=== PATIENT | female | born 1945 | race American Indian/Alaskan Native ===

== ENCOUNTER 2018-05-14 09:33 | Outpatient (CLI) | payer MEDICARE, OTHER | END 2018-05-14 09:34 | disposition home or self-care (01) | LOC: C.VASC 09:33 ==

== ENCOUNTER 2018-05-28 11:34 | Outpatient (CLI) | payer MEDICARE, OTHER | END 2018-05-28 11:35 | disposition home or self-care (01) | LOC: C.PAT 11:34 → C.VASC 11:35 | DX: N18.6 End stage renal disease (principal) ==

== ENCOUNTER 2018-05-30 07:24 | Day surgery (SDC) | payer MEDICARE, OTHER ==
[2018-05-28 12:01] VITALS: BMI 33.7
[2018-05-30 08:46] VITALS: BP 162/94; PULSE 84; RESP 20; TEMP 97.3; O2SAT 100
[2018-05-30 08:50] LABS: CALCIUM 9.4 mg/dl (8.6-10.4)
[2018-05-30] MEDS ORDERED: HEPARIN-NS 5,000 UNITS/500 ML 0 UNIT/0 ML BAG IV ONE (10:29)
== END 2018-05-30 11:15 | disposition home or self-care (01) ==
LOC: C.SDS 07:24
PROVIDERS: ATTEND Surgery Vascular Surgery
DX: N18.6 End stage renal disease (principal); Z53.8 Procedure and treatment not carried out for other reasons

== ENCOUNTER 2018-06-06 06:05 | Day surgery (SDC) | payer MEDICARE, OTHER ==
[2018-05-28 12:01] VITALS: BMI 33.7
[2018-06-06] MEDS ORDERED: HEPARIN-NS 5,000 UNITS/500 ML 5,000 UNIT/500 ML BAG IV ONE (09:10)
[2018-06-06] MEDS ORDERED: Clindamycin 600mg/50ml NS 600 MG/50 ML BAG IVPB ONE (09:10)
[2018-06-06] MEDS ORDERED: Propofol 10 mg/ml Inj (20 ML) ONE (09:19)
[2018-06-06] MEDS ORDERED: Midazolam 2 MG/2 ML VIAL ONE (09:19)
[2018-06-06] MEDS ORDERED: ePHEDrine 50 mg/ml Inj ONE (10:05)
[2018-06-06] MEDS ORDERED: Phenylephrine 10 mg/ml Inj ONE (10:05)
[2018-06-06] MEDS ORDERED: Sodium Chloride 0.9% 500 ML IV ONE (11:32)
[2018-06-06] MEDS ORDERED: HYDROmorphone 0.5 mg/0.5 ml ISec IVP PRN (11:34)
[2018-06-06] MEDS ORDERED: Oxycodone/Acetaminophen 5/325 mg Tab PO PRN (11:38)
--- NOTE | 2018-06-06 11:38 | PCM.SURG1 ---
Surgeon's Initial Post Op Note - Surgeon's Notes Surgeon: Dr. Siegel Supervisor Curing Room: Dr. Wilson PGY3 Type of Anesthesia: General LMA Pre-Operative Diagnosis: ESRD Operative Findings: see dictation Post-Operative Diagnosis: same Operation Performed: Right brachial-basilic AV fistula Specimen/Specimens Removed: none Estimated Blood Loss: EBL {In ML}: 25 Blood Products Given: N/A Drains Used: No Drains Post-Op Condition: Good Date of Surgery/Procedure: 06/06/18 Time of Surgery/Procedure: 11:38
[2018-06-06 16:28] VITALS: RESP 16
[2018-06-06 16:32] VITALS: BP 118/56; PULSE 90; TEMP 98.9; O2SAT 100
--- NOTE | 2018-06-06 22:59 | OP ---
PROCEDURE DATE: 06/06/2018 PREOPERATIVE DIAGNOSIS: Renal failure. POSTOPERATIVE DIAGNOSIS: Renal failure. PROCEDURE CARRIED OUT: Brachiobasilic fistula, right elbow. SURGEON: Spencer Siegel Jr., MD RECORD RETRIEVAL SPECIALIST: Alley Wilson DO ANESTHESIOLOGIST: Dr. Escalante INDICATIONS: The patient is a 73-year-old woman with renal insufficiency who needs permanent access. Previous attempts on the left arm were unsuccessful. OPERATIVE FINDINGS: A brachiobasilic fistula was created in the right arm. At the end of the procedure, we had a palpable pulse in the wrist, and we had good flow to the fistula. DESCRIPTION OF PROCEDURE: The patient was given general anesthesia and intravenous antibiotics. The veins were marked on the arm. After identifying the basilic vein, we then marked it. We marked the adjacent artery, brachial artery at the elbow. We dissected between these and then after spatulated using a spatulated technique, loupe magnification, heparin anticoagulation, and vessel loop control. We then carried out the anastomosis in an end-to-side fashion. After completion of this, there was a pulse at the wrist, and there was a good flow to the fistula. Blood loss for the procedure was less than 25 mL. Operation carried out was brachiobasilic fistula, right elbow which is on the right side, left sided attempted previously, changed it to right side. Most likely, the patient will require mobilization at the second stage in the future provided fistula remains patent and the vein increases in size. Spencer Siegel Jr., MD cc: Dr. Marcie Grant MD
== END 2018-06-06 15:00 | disposition home or self-care (01) ==
LOC: C.SDS 06:05
PROVIDERS: ATTEND Surgery Vascular Surgery
DX: I12.0 Hypertensive chronic kidney disease with stage 5 chronic kidney disease or end stage renal disease (principal); E11.22 Type 2 diabetes mellitus with diabetic chronic kidney disease; N18.6 End stage renal disease; Z99.2 Dependence on renal dialysis; E11.51 Type 2 diabetes mellitus with diabetic peripheral angiopathy without gangrene; E03.9 Hypothyroidism, unspecified; E78.2 Mixed hyperlipidemia; Z86.73 Personal history of transient ischemic attack (TIA), and cerebral infarction without residual deficits; Z90.710 Acquired absence of both cervix and uterus; Z98.42 Cataract extraction status, left eye; Z98.41 Cataract extraction status, right eye; Z79.82 Long term (current) use of aspirin; Z79.899 Other long term (current) drug therapy; Z88.0 Allergy status to penicillin
CPT/HCPCS: 36415; 36821; 80048; J1644; J2001; J2250; J2370; J2704; J3010; J7030

== ENCOUNTER 2018-07-04 18:04 | Emergency (ER) | payer MEDICARE, OTHER ==
[2018-07-04 18:04] VITALS: BMI 33.7
[2018-07-04 18:24] VITALS: O2SAT 97
--- NOTE | 2018-07-04 19:35 | C.PDOC ---
History Of Present Illness 73 year old female presents with bleeding catheter since earlier today. Patient had dialysis done yesterday. Denies pain. Chief Complaint (Nursing): Vascular Access Device Problem History Per: Patient History/Exam Limitations: no limitations Onset/Duration Of Symptoms: Hrs Current Symptoms Are (Timing): Still Present Recent travel outside of the [place]: No Past Medical History Reviewed: Historical Data, Nursing Documentation, Vital Signs Vital Signs: Last Vital Signs Temp 98.5 F 07/04/18 18:21 Pulse 101 H 07/04/18 18:21 Resp 18 07/04/18 18:21 BP 147/77 07/04/18 18:21 Pulse Ox 97 07/04/18 18:21 - Medical History PMH: Anemia, Arthritis, HTN, Hypercholesterolemia, Hyperlipidemia, Hypothyroidism, Chronic Kidney Disease, TIA - [facility] (04/20/17) DIALYSIS ARTERIOVENOSTOM (10/07/13) PACKED CELL TRANSFUSION (10/11/13) [facility] (01/09/14) Family History: States: Unknown Family Hx - Social History Hx Alcohol Use: No Hx Substance Use: No Review Of Systems Constitutional: Negative for: Fever, Chills Cardiovascular: Negative for: Chest Pain, Palpitations Respiratory: Negative for: Cough, Shortness of Breath Gastrointestinal: Negative for: Nausea, Vomiting Skin: Positive for: Other (Bleeding from catheter) Neurological: Negative for: Weakness, Numbness Physical Exam - Physical Exam Appears: Non-toxic, No Acute Distress Skin: Warm, Dry Head: Atraumatic, Normacephalic Eye(s): bilateral: Normal Inspection Oral Mucosa: Moist Neck: Normal, Supple Chest: No Tenderness, Other (Dried blood around catheter site, no active bleeding.) Cardiovascular: Rhythm Regular Respiratory: Normal Breath Sounds, No Rales, No Rhonchi, No Wheezing Gastrointestinal/Abdominal: Soft, No Tenderness Neurological/Psych: Oriented x3, Normal Speech ED Course And Treatment O2 Sat by Pulse Oximetry: 97 (Room air) Pulse Ox Interpretation: Normal Progress Note: Dressing was changed, patient stable for discharge. Disposition Counseled Patient/Family Regarding: Diagnosis - Disposition Referrals: [facility] [Outside] Disposition: HOME/ ROUTINE Disposition Time: 19:36 Condition: STABLE Additional Instructions: to return if with active bleeding. Instructions: Arteriovenous Fistula for Dialysis (DC) Forms: [employer] (Lao) - POA Present On Arrival: None, [facility] - Clinical Impression Clinical Impression: ESRD (end stage renal disease), Vascular dialysis catheter in place - Scribe Statement The provider has reviewed the documentation as recorded by the Scribe Rehan Hendrix All medical record entries made by the Scribe were at my direction and personally dictated by me. I have reviewed the chart and agree that the record accurately reflects my personal performance of the history, physical exam, medical decision making, and the department course for this patient. I have also personally directed, reviewed, and agree with the discharge instructions and disposition.
[2018-07-04 20:26] VITALS: BP 109/65; PULSE 93; RESP 16; TEMP 98.8
== END 2018-07-04 19:50 | disposition home or self-care (01) ==
LOC: C.ER 18:04
DX: N18.6 End stage renal disease (principal); Z99.2 Dependence on renal dialysis

== ENCOUNTER 2018-07-11 08:16 | Outpatient (CLI) | payer MEDICARE, OTHER | END 2018-07-11 08:17 | disposition home or self-care (01) | LOC: C.VASC 08:16 | DX: N18.6 End stage renal disease (principal) ==

== ENCOUNTER 2018-07-23 09:42 | Day surgery (SDC) | payer MEDICARE, OTHER ==
[2018-07-17 08:31] VITALS: BMI 37.0
[2018-07-23] MEDS ORDERED: Lidocaine Hydrochloride 10 ML INJ ONE (12:41)
[2018-07-23] MEDS ORDERED: HEPARIN-NS 5,000 UNITS/500 ML 5,000 UNIT/500 ML BAG IV ONE (12:41)
[2018-07-23] MEDS ORDERED: Vancomycin 1 gm/D5W 200 ml 1 GM/200 ML BAG IVPB ONE (13:01)
[2018-07-23 13:57] LABS: CALCIUM 9.5 mg/dl (8.6-10.4)
[2018-07-23] MEDS ORDERED: Propofol 10 mg/ml Inj (20 ML) ONE (14:02)
[2018-07-23] MEDS ORDERED: ePHEDrine 50 mg/ml Inj ONE (14:58)
[2018-07-23] MEDS ORDERED: HYDROmorphone 0.5 mg/0.5 ml ISec IVP PRN (16:30)
[2018-07-23] MEDS ORDERED: Metoprolol 1 mg/ml Inj IVP ONE (16:31)
[2018-07-23] MEDS ORDERED: Oxycodone/Acetaminophen 5/325 mg Tab PO PRN (16:32)
--- NOTE | 2018-07-23 16:32 | PCM.SURG1 ---
Surgeon's Initial Post Op Note - Surgeon's Notes Surgeon: Dr. Siegel Traveling Secretary: Prieto PGY2 Type of Anesthesia: General Endo Anesthesia Administered By: Dr. Ochoa Pre-Operative Diagnosis: ESRD on HD Operative Findings: RUE AVF, basilic-brachial Post-Operative Diagnosis: ESRD on HD Operation Performed: Transposition of basilic-brachial AVF in RUE Specimen/Specimens Removed: NONE Estimated Blood Loss: EBL {In ML}: 25 Blood Products Given: N/A Drains Used: No Drains Post-Op Condition: Good Date of Surgery/Procedure: 07/23/18 Time of Surgery/Procedure: 16:31
[2018-07-23 17:36] VITALS: O2SAT 98
[2018-07-23 18:11] VITALS: BP 137/69; PULSE 66; RESP 18; TEMP 98
--- NOTE | 2018-07-24 03:13 | OP ---
PROCEDURE DATE: 07/23/2018 PREOPERATIVE DIAGNOSIS: Renal failure. POSTOPERATIVE DIAGNOSIS: Renal failure. PROCEDURE CARRIED OUT: Revision of arteriovenous fistula with creation of basilic vein transposition, right arm. SURGEON: Spencer Siegel Jr., MD PE TEACHER: Prudencio Moreau DO ANESTHESIOLOGIST: Dr. Ochoa ANESTHESIA: General anesthesia. INDICATION: The patient is an elderly woman, on dialysis, multiple access failures in the contralateral arm. OPERATIVE FINDINGS: The anatomy was quite confusing, and I had difficulty initially dissecting out and identifying the basilic vein despite use of ultrasound. DESCRIPTION OF PROCEDURE: The patient was given general anesthesia and intravenous antibiotics. Using ultrasound, we marked out the entire vein on the arm. We then began our dissection. We had great difficult following this. We then did go higher up the arm, identify the basilic vein. We tended to abandon the operation because it appeared to be a small in size. Nonetheless, eventually we were able to satisfactorily dissect it out. After we had done this, we then ligated all the branches and tributaries. It was quite tedious as there were numerous branches. Then, we brought the vein into the subcutaneous position closing the subcutaneous tissues below and closing the skin on top of it. Blood loss for the entire procedure was less than 25 mL. Heparin was not given or reversed. The patient was given general anesthesia. The vein had been marked. It was dissected free which is quite difficult to eventually dissect and free. Had excellent hemostasis. Brought into subcutaneous position. Closed the skin with nylon sutures and skin clips. The patient tolerated the procedure uneventfully. OPERATION CARRIED OUT: Revision of arteriovenous fistula with creation of basilic vein transposition, right arm. Spencer Siegel Jr., MD
== END 2018-07-23 18:14 | disposition home or self-care (01) ==
LOC: C.SDS 09:42
PROVIDERS: ATTEND Surgery Vascular Surgery
DX: N18.6 End stage renal disease (principal)
CPT/HCPCS: 36415; 36819; 80048; 82948; J1170; J2001; J2405; J2704; J3010; J3370

== ENCOUNTER → 2018-09-03 | Day surgery (SDC) | payer MEDICARE, OTHER ==
[~2018-09-03] MED LIST: HEPARIN-NS 5,000 UNITS/500 ML 5,000 UNIT/500 ML BAG IV ONE; Lidocaine Hydrochloride 0 ML INJ ONE; Vancomycin 1 gm/D5W 200 ml 0 GM/0 ML BAG IVPB ONE
[2018-09-03 10:49] VITALS: BMI 31.1
[2018-09-03 12:13] LABS: CALCIUM 9.3 mg/dl (8.6-10.4)
[2018-09-03 14:31] VITALS: BP 172/86; PULSE 83; RESP 18; TEMP 97.8; O2SAT 96
--- NOTE | 2018-09-04 07:17 | CP.PCM.PCO ---
Additional Comments - Additional Comments Additional Comments: Patient admitted via SDS for planned AV Graft placement today. However, concerns due to patient with a cold and sore throat currently. Discussed with the patient at length regarding possibly proceeding vs. rescheduling the surgery. Patient elected to reschedule procedure at a later date. We will plan to reschedule after follow up in Dr. Siegel office. Patient understands and agrees with the plan. Further recs as per Dr. Christal Sampson PGY2 surgery
== END | disposition home or self-care (01) ==
LOC: C.SDS 09:49
PROVIDERS: ATTEND Surgery Vascular Surgery
DX: N18.6 End stage renal disease (principal); Z53.09 Procedure and treatment not carried out because of other contraindication